=== PATIENT | female | born 1940 | race Two or more races ===

== ENCOUNTER 2017-03-04 09:52 | Day surgery (SDC) | payer MEDICARE, MEDICAID ==
[~2017-03-04] VITALS: Ht 142.2 cm; Wt 56.8 kg
[~2017-03-04 09:52] MED LIST: ASPI-650; EZET10TA3 PO; ZOC10 PO
[2017-03-04 10:22] VITALS: Ht 142.2 cm; Wt 56.8 kg
[2017-03-04] MEDS ORDERED: PROPOFOL 20 ML ONE (10:35)
[2017-03-04] MEDS ORDERED: BENA20TA48 PO (10:36)
[2017-03-04] MEDS ORDERED: ALEN70TA30 PO (10:36)
[2017-03-04] MEDS ORDERED: DOCU-159 PO (10:36)
[2017-03-04 10:46] VITALS: BP 176/82; PULSE 73; RESP 18
[2017-03-04 11:34] VITALS: BP 147/71; PULSE 62; RESP 12
--- NOTE | 2017-03-12 05:22 | GILP ---
DATE OF PROCEDURE: 03/04/2017 PROCEDURE: Colonoscopy. SURGEON: Dulce Calvo MD PREOP DIAGNOSIS: Positive occult blood in stool. POSTOP DIAGNOSES: 1. Colonoscopy all the way to the cecum. 2. Diverticulosis of the colon. 3. Internal hemorrhoids. 4. No colon neoplasm was identified. INDICATION: Ms Claudia Perez is a 77-year-old female patient who was noted to have positive occult blood in stool. The patient was scheduled for colonoscopy for further evaluation. The procedure and possible complications were well explained to the patient and the family and consent was obtained. DESCRIPTION OF PROCEDURE: Under the influence of anesthesia, the colonoscope was carefully introduced in the rectum. Under direct vision it was advanced all the way to the cecum. Findings: Diverticulosis of the colon. Patient also had internal hemorrhoids. No colon neoplasm was identified. The patient tolerated the procedure very well. There is no complications from the procedure. At the end of procedure the patient was awake with stable vital signs and she was discharged under the care of her family. IMPRESSION: 1. Colonoscopy all the way to the cecum. 2. Diverticulosis of the colon. 3. Internal hemorrhoids. 4. No colon neoplasm was identified. PLAN: 1. High-fiber diet. 2. Patient will not need another screening colonoscopy because of the patient's age. Dictated By: MD JANEY Singh/colleen/beau /Document#: [id number]
== END 2017-03-04 12:16 | disposition home or self-care (01) ==
LOC: GIL 09:52
PROVIDERS: ATTEND Internal Medicine Gastroenterology
DX: K92.1 Melena (principal); K57.90 Diverticulosis of intestine, part unspecified, without perforation or abscess without bleeding; K64.8 Other hemorrhoids; I10 Essential (primary) hypertension; E78.5 Hyperlipidemia, unspecified